=== PATIENT | female | born 1950 | race Two or more races ===

== ENCOUNTER → 2016-05-26 | Outpatient (CLI) | payer OTHER | LOC: FCPNEURO 23:15 | PROVIDERS: ATTEND Psychiatry & Neurology Sleep Medicine | DX: G47.33 Obstructive sleep apnea (adult) (pediatric) (principal) ==

== ENCOUNTER 2017-06-06 03:50 | Emergency (ER) | payer OTHER ==
[2017-06-06 04:25] LABS: PLATELET COUNT 235 10^3/uL (150-400)
[2017-06-06] MEDS ORDERED: NS 1,000 ML IV ONE (04:28)
[2017-06-06] MEDS ORDERED: KETOROLAC 15 MG/1 ML SDV IVP ONE (04:48)
[2017-06-06] MEDS ORDERED: ONDANSETRON 4 MG/2 ML VIAL IVP ONE (04:48)
--- NOTE | 2017-06-06 04:52 | EDPHY ---
H & P Stated Complaint: RIGHT FLANK AND SIDE PAIN X3 DAYS, WORSE, NAUSEA Time Seen by Provider: 06/06/17 03:59 HPI/ROS: HPI The patient presents with right-sided flank pain which began 3 days ago slowly though has gotten progressively worse. It is sharp in nature, worse with deep breaths and changes in position. She was not able to sleep tonight because of the pain and the pain began to radiate toward her abdomen. She describes urinary frequency and urgency for the last 3 days. She has not had a fever or vomiting. She has a remote history of ureterolithiasis. REVIEW OF SYSTEMS Constitutional: No fever, no chills. Eyes: No discharge. ENT: No sore throat. Cardiovascular: No chest pain, no palpitations. Respiratory: No cough, no shortness of breath. Gastrointestinal: No abdominal pain, no vomiting. Genitourinary: No hematuria. Musculoskeletal: No back pain. Skin: No rashes. Neurological: No headache. PMHx: Hypertension, diabetes, GERD Soc Hx: Lives at home with PHYSICAL General Appearance: Alert, no distress Eyes: Pupils equal and round no pallor or injection ENT, Mouth: Mucous membranes moist Respiratory: There are no retractions, lungs are clear to auscultation Cardiovascular: Regular rate and rhythm Gastrointestinal: Abdomen is soft with mild tenderness in the right upper and lower quadrants no masses, bowel sounds normal Back: There is right-sided flank tenderness Neurological: A&O, moves all extremities Skin: Warm and dry, no rashes Musculoskeletal: Neck is supple non tender Extremities: symmetrical, full range of motion Psychiatric: Patient is oriented X 3, there is no agitation Source: Patient Exam Limitations: No limitations - Personal History Current Tetanus/Diphtheria Vaccine: Yes Tetanus Vaccine Date: within 10 years - Medical/Surgical History Hx Asthma: No Hx Chronic Respiratory Disease: No Hx Diabetes: Yes Hx Cardiac Disease: Yes Hx Renal Disease: No Hx Cirrhosis: No Hx Alcoholism: No Hx HIV/AIDS: No Hx Splenectomy or Spleen Trauma: No Other PMH: HTN, GERD, hypothyroid, DM - Social History Smoking Status: Former smoker Constitutional: Initial Vital Signs Temperature (C) 36.9 C 06/06/17 03:52 Heart Rate 77 06/06/17 03:52 Respiratory Rate 22 H 06/06/17 03:52 Blood Pressure 163/82 H 06/06/17 03:52 O2 Sat (%) 94 06/06/17 03:52 O2 Delivery Mode Nasal Cannula O2 (L/minute) 2 Allergies/Adverse Reactions: No Known Allergies Allergy (Verified 06/06/17 03:52) Home Medications: Medication Instructions Recorded Aspirin [Aspirin 81mg (OTC)] 81 mg PO DAILY 04/10/13 Insulin Glargine [Lantus 100 42 units SC HS 04/10/13 UNITS/ML (RX)] Levothyroxine [Synthroid 50 mcg 50 mcg PO DAILY06 04/10/13 (RX)] Lisinopril [Zestril 40 mg (RX)] 40 mg PO DAILY 04/10/13 [place]-3 Fatty Acids [Fish Oil 1000 1,000 mg PO BID 04/10/13 mg (OTC)] Pantoprazole Sodium [Protonix 40mg 40 mg PO DAILY 04/10/13 (RX)] Sitagliptin Phos/Metformin HCl 1 tab PO BID 04/10/13 [Janumet 50-1,000 mg Tablet] Atorvastatin Calcium [Lipitor 40 40 mg PO DAILY 02/23/16 mg (*)] Canagliflozin [Invokana] 100 mg PO DAILY 02/23/16 Herbals/Supplements -Info Only 1 ea PO DAILY 02/23/16 Metoprolol Tartrate [Lopressor 50 50 mg PO BID 02/23/16 mg (*)] amLODIPine BESYLATE [Norvasc 5 mg 5 mg PO DAILY 02/23/16 (*)] levOFLOXACIN [Levofloxacin] 750 mg PO DAILY #7 tablet 06/06/17 Medical Decision Making - Diagnostics Imaging Results: CT abdomen pelvis without contrast demonstrates no obvious ureterolithiasis the though there is ureteral dilatation and in dilation of the renal pelvis on the right. This is discussed with Dr. Flynn of Radiology. Imaging: Discussed imaging studies w/ chemical cell changer Radiologist, I viewed and interpreted images myself Differential Diagnosis: This is a 66-year-old female with diabetes, hypertension who presents from home with 3 days of right-sided flank pain getting progressively worse and associated with nausea without vomiting. She does have irritative voiding symptoms as well. Differential diagnosis includes pyelonephritis, ureterolithiasis, diverticulitis , appendicitis. In the emergency department, patient was started on IV fluids. She was given Toradol and Zofran for her symptoms. Her symptoms improved somewhat, however she was given and dose of Dilaudid as well and this caused complete resolution. Labs were checked and revealed hyperglycemia. She did have evidence of urinary tract infection. I suspect she has pyelonephritis. CT scan did show some dilation of her ureter and renal pelvis though no obvious stone. She has just trace hematuria and I feel renal colic is unlikely. She would really like to go home. I have given her a dose of ceftriaxone and will discharge her with Levaquin. I have issued her strict return precautions. - Data Points Laboratory Results: Laboratory Results 06/06/17 04:15 06/06/17 04:15 06/06/17 06/06/17 06/06/17 04:40 04:15 04:15 WBC 8.48 10^3/uL 10^3/uL (3.80-9.50) RBC 4.87 10^6/uL 10^6/uL (4.18-5.33) Hgb 14.3 g/dL g/dL (12.6-16.3) Hct 43.1 % % (38.0-47.0) MCV 88.5 fL fL (81.5-99.8) MCH 29.4 pg pg (27.9-34.1) MCHC 33.2 g/dL g/dL (32.4-36.7) RDW 14.9 % % (11.5-15.2) Plt Count 235 10^3/uL 10^3/uL (150-400) MPV 10.9 fL fL (8.7-11.7) Neut % (Auto) 68.5 % % (39.3-74.2) Lymph % (Auto) 21.3 % % (15.0-45.0) [place] % (Auto) 6.5 % % (4.5-13.0) Eos % (Auto) 2.8 % % (0.6-7.6) Baso % (Auto) 0.4 % % (0.3-1.7) Nucleat RBC Rel Count 0.0 % % (0.0-0.2) Absolute Neuts (auto) 5.81 10^3/uL 10^3/uL (1.70-6.50) Absolute Lymphs (auto) 1.81 10^3/uL 10^3/uL (1.00-3.00) Absolute Monos (auto) 0.55 10^3/uL 10^3/uL (0.30-0.80) Absolute Eos (auto) 0.24 10^3/uL 10^3/uL (0.03-0.40) Absolute Basos (auto) 0.03 10^3/uL 10^3/uL (0.02-0.10) Absolute Nucleated RBC 0.00 10^3/uL 10^3/uL (0-0.01) Immature Gran % 0.5 % % (0.0-1.1) Immature Gran # 0.04 10^3/uL 10^3/uL (0.00-0.10) Sodium 144 mEq/L mEq/L (135-145) Potassium 4.6 mEq/L mEq/L (3.5-5.2) Chloride 103 mEq/L mEq/L (97-110) Carbon Dioxide 28 mEq/l mEq/l (22-31) Anion Gap 13 mEq/L mEq/L (8-16) BUN 15 mg/dL mg/dL (7-23) Creatinine 0.7 mg/dL mg/dL (0.6-1.0) Estimated GFR > 60 Glucose 156 mg/dL H mg/dL (70-100) Calcium 9.0 mg/dL mg/dL (8.5-10.4) Total Bilirubin 0.4 mg/dL mg/dL (0.1-1.4) Conjugated Bilirubin 0.3 mg/dL mg/dL (0.0-0.5) Unconjugated Bilirubin 0.1 mg/dL mg/dL (0.0-1.1) AST 24 IU/L IU/L (14-46) ALT 36 IU/L IU/L (9-52) Alkaline Phosphatase 96 IU/L IU/L (38-126) Total Protein 6.7 g/dL g/dL (6.3-8.2) Albumin 3.9 g/dL g/dL (3.5-5.0) Lipase 142 IU/L IU/L (23-300) Urine Color YELLOW Urine Appearance HAZY Urine pH 6.0 (5.0-7.5) Ur Specific Diamond 1.012 (1.002-1.030) Urine Protein 1+ H (NEGATIVE) Urine Ketones NEGATIVE (NEGATIVE) Urine Blood 1+ H (NEGATIVE) Urine Nitrate POSITIVE H (NEGATIVE) Urine Bilirubin NEGATIVE (NEGATIVE) Urine Urobilinogen NEGATIVE EU EU (0.2-1.0) Ur Leukocyte Esterase 2+ H (NEGATIVE) Urine RBC 1-3 /hpf /hpf (0-3) Urine WBC 50-182 /hpf H /hpf (0-3) Ur Epithelial Cells TRACE /lpf /lpf (NONE-1+) Urine Bacteria 4+ /hpf H /hpf (NONE SEEN) Urine Glucose 3+ H (NEGATIVE) Medications Given: Discontinued Medications Hydromorphone HCl (Dilaudid) 0.5 mg IVP EDNOW ONE Stop: 06/06/17 05:44 Last Admin: 06/06/17 05:51 Dose: 0.5 mg Sodium Chloride (Ns) 1,000 mls @ 0 mls/hr IV ONCE ONE PRN Reason: Wide Open Stop: 06/06/17 04:29 Last Admin: 06/06/17 04:30 Dose: 1,000 mls Ceftriaxone Sodium/Dextrose (Rocephin 1 Gm (Premix)) 50 mls @ 100 mls/hr IV EDNOW ONE PRN Reason: Protocol Stop: 06/06/17 05:56 Last Admin: 06/06/17 05:39 Dose: 50 mls Ketorolac Tromethamine (Toradol) 15 mg IVP EDNOW ONE Stop: 06/06/17 04:49 Last Admin: 06/06/17 05:18 Dose: 15 mg Ondansetron HCl (Zofran) 4 mg IVP EDNOW ONE Stop: 06/06/17 04:49 Last Admin: 06/06/17 05:18 Dose: 4 mg Departure - Departure Disposition: Home, Routine, Self-Care Clinical Impression: Acute pyelonephritis Condition: Good Instructions: Hydrocodone/Acetaminophen (By mouth), Ondansetron (By mouth), Urinary Tract Infection in Women (ED), Kidney Infection (ED) Additional Instructions: Please make sure to drink plenty of fluids. If you are not better in the next 1 day you should return to the emergency department. Referrals: Bridgette Douglas MD [Primary Care Provider] - As per Instructions Prescriptions: levOFLOXACIN [Levofloxacin] 750 mg PO DAILY #7 tablet
[2017-06-06] MEDS ORDERED: HYDROmorphONE/DILAUDID 2 MG/ML INJ IVP ONE (05:43)
[2017-06-06 06:04] VITALS: BP 160/73; PULSE 66; RESP 16; TEMP 98.6
[2017-06-06] MEDS ORDERED: ONDANSETRON 4MG PREPACK#2 BTL TAKEHOME ONE (06:23)
[2017-06-06] MEDS ORDERED: HYDROCOD/APAP 5/325 PREPACK#6 BTL TAKEHOME ONE (06:23)
[2017-06-06 06:59] VITALS: O2SAT 96
== END 2017-06-06 06:58 | disposition home or self-care (01) ==
DX: N10 Acute pyelonephritis (principal); B96.89 Other specified bacterial agents as the cause of diseases classified elsewhere; I10 Essential (primary) hypertension; E11.9 Type 2 diabetes mellitus without complications; Z79.4 Long term (current) use of insulin; Z79.82 Long term (current) use of aspirin; Z87.891 Personal history of nicotine dependence
CPT/HCPCS: 74176; 96365; 96375; 99285; J0696; J1170; J1885; J2405

== ENCOUNTER 2018-02-18 07:06 | Emergency (ER) | payer OTHER ==
--- NOTE | 2018-02-18 07:15 | EDPHY ---
H & P Time Seen by Provider: 02/18/18 07:13 HPI/ROS: CHIEF COMPLAINT: Diarrhea HISTORY OF PRESENT ILLNESS: Patient is a 67-year-old female who comes to the emergency depart with her complaining of diarrhea for 3 days and now feeling dizzy and weak. She also complains of dysuria for the last day. No fever. No flank pain. No chest pain or shortness of breath. No vomiting. No blood in her stool. She did return from [facility] on Friday. She also complains of mild periumbilical pain. She has a history of hysterectomy no other abdominal surgeries. Severity: Moderate Modifying factors: Seem to be worsening with time REVIEW OF SYSTEMS: Constitutional: denies: chills, fever, recent illness, recent injury EENTM: denies: blurred vision, double vision, nose congestion Respiratory: denies: cough, shortness of breath Cardiac: denies: chest pain, irregular heart rate, lightheadedness, palpitations Gastrointestinal/Abdominal: See HPI Genitourinary: See HPI Musculoskeletal: denies: joint pain, muscle pain Skin: denies: lesions, rash, jaundice, bruising Neurological: denies: headache, numbness, paresthesia, tingling, dizziness, weakness Hematologic/Lymphatic: denies: blood clots, easy bleeding, easy bruising Immunologic/allergic: denies: HIV/AIDS, transplant 10 systems reviewed and negative except as noted EXAM: GENERAL: Well-appearing, overweight and in no acute distress. HEAD: Atraumatic, normocephalic. EYES: Pupils equal round and reactive to light, extraocular movements intact, sclera anicteric, conjunctiva are normal. ENT: TMs normal, nares patent, oropharynx clear without exudates. Moist mucous membranes. NECK: Normal range of motion, supple without lymphadenopathy or JVD. LUNGS: Breath sounds clear to auscultation bilaterally and equal. No wheezes rales or rhonchi. HEART: Regular rate and rhythm without murmurs, rubs or gallops. ABDOMEN: Soft, nontender, normoactive bowel sounds. No guarding, no rebound. No masses appreciated. BACK: No CVA tenderness, no spinal tenderness, step-offs or deformities EXTREMITIES: Normal range of motion, no pitting or edema. No clubbing or cyanosis. NEUROLOGICAL: Cranial nerves II through XII grossly intact. Normal speech, normal gait. 5/5 strength, normal movement in all extremities, normal sensation , normal reflexes PSYCH: Normal mood, normal affect. SKIN: Warm, dry, normal turgor, no visible rashes or lesions. Source: Patient Exam Limitations: No limitations - Personal History Tetanus Vaccine Date: within 10 years - Medical/Surgical History Hx Asthma: No Hx Chronic Respiratory Disease: No Hx Diabetes: Yes Hx Cardiac Disease: Yes Hx Renal Disease: No Hx Cirrhosis: No Hx Alcoholism: No Hx HIV/AIDS: No Hx Splenectomy or Spleen Trauma: No Other PMH: CAD x 1 stent, HTN, GERD, hypothyroid, DM - Family History Significant Family History: No pertinent family hx - Social History Smoking Status: Former smoker Alcohol Use: Sober Drug Use: None Constitutional: Initial Vital Signs Temperature (C) 36.6 C 02/18/18 07:13 Heart Rate 84 02/18/18 07:13 Respiratory Rate 18 02/18/18 07:13 Blood Pressure 165/79 H 02/18/18 07:13 O2 Sat (%) 94 02/18/18 07:13 O2 Delivery Mode Room Air Allergies/Adverse Reactions: No Known Allergies Allergy (Verified 06/06/17 03:52) Home Medications: Medication Instructions Recorded Aspirin [Aspirin 81mg (OTC)] 81 mg PO DAILY 04/10/13 Insulin Glargine [Lantus 100 42 units SC HS 04/10/13 UNITS/ML (RX)] Levothyroxine [Synthroid 50 mcg 50 mcg PO DAILY06 04/10/13 (RX)] Lisinopril [Zestril 40 mg (RX)] 40 mg PO DAILY 04/10/13 [place]-3 Fatty Acids [Fish Oil 1000 1,000 mg PO BID 04/10/13 mg (OTC)] Pantoprazole Sodium [Protonix 40mg 40 mg PO DAILY 04/10/13 (RX)] Sitagliptin Phos/Metformin HCl 1 tab PO BID 04/10/13 [Janumet 50-1,000 mg Tablet] Atorvastatin Calcium [Lipitor 40 40 mg PO DAILY 02/23/16 mg (*)] Canagliflozin [Invokana] 100 mg PO DAILY 02/23/16 Herbals/Supplements -Info Only 1 ea PO DAILY 02/23/16 Metoprolol Tartrate [Lopressor 50 50 mg PO BID 02/23/16 mg (*)] amLODIPine BESYLATE [Norvasc 5 mg 5 mg PO DAILY 02/23/16 (*)] levOFLOXACIN [Levofloxacin] 750 mg PO DAILY #7 tablet 06/06/17 Ciprofloxacin [Cipro] 500 mg PO BID #6 tab 02/18/18 Medical Decision Making ED Course/Re-evaluation: Patient's abdominal exam is benign. She is complaining of dysuria. Will check urinalysis and began hydrating her. The patient's urinalysis is positive. Ciprofloxacin is not the ideal choice for urinary tract infections here and [place] however the patient is also complaining of diarrhea from recent travel to [place]. This could potentially cover both. I will start her on ciprofloxacin here. Her abdominal exam remains benign. We had a discussion about quinolones and I told them that this is a an antibiotic that could potentially have some serious complications. We agreed that in this situation this is the right medication and one that I would give my family member but they do need to be aware these complications. We discussed increased risk of tendon rupture as well as peripheral neuropathy. I advised the patient to limit high impact activities. I told them to return for evaluation if they develop tendon or joint pain. This conversation represented shared medical decision making. We did consider alternatives. 8:40 a.m. the patient continues to do well. Her lab work is reassuring. Her abdominal exam is benign. She and her are very eager to go home because he has to go to work. Differential Diagnosis: Partial list of the Differential diagnosis considered include but were not limited to; urinary tract infection, infectious diarrhea, traveler's diarrhea and although unlikely based on the history and physical exam, I also considered diverticulitis, appendicitis, biliary disease, ischemia, volvulus, pyelonephritis. I discussed these differential diagnoses and the plan with the patient as well as the usual and expected course. The patient understands that the diagnosis is provisional and that in medicine we are not always correct and that further workup is often warranted. Usual and customary warnings were given. All of the patient's questions were answered. The patient was instructed to return to the emergency department should the symptoms at all worsen or return, otherwise to followup with the physician as we discussed. - Data Points Laboratory Results: Laboratory Results 02/18/18 07:30 02/18/18 07:30 Medications Given: Discontinued Medications Ciprofloxacin (Cipro) 500 mg PO EDNOW ONE PRN Reason: Protocol Stop: 02/18/18 07:58 Last Admin: 02/18/18 08:04 Dose: 500 mg Sodium Chloride (Ns) 1,000 mls @ 0 mls/hr IV EDNOW ONE; Wide Open PRN Reason: Protocol Stop: 02/18/18 07:22 Last Admin: 02/18/18 07:44 Dose: 1,000 mls Ceftriaxone Sodium/Dextrose (Rocephin 1 Gm (Premix)) 50 mls @ 100 mls/hr IV EDNOW ONE PRN Reason: Protocol Stop: 02/18/18 08:16 Last Admin: 02/18/18 08:06 Dose: Not Given Departure - Departure Disposition: Home, Routine, Self-Care Clinical Impression: Travelers' diarrhea Urinary tract infection Qualifiers: Urinary tract infection type: acute cystitis Hematuria presence: without hematuria Qualified Code(s): N30.00 - Acute cystitis without hematuria Condition: Fair Instructions: Traveler's Diarrhea (ED), Urinary Tract Infection in Women (ED) Referrals: Bridgette Douglas MD [Primary Care Provider] - As per Instructions Prescriptions: Ciprofloxacin [Cipro] 500 mg PO BID #6 tab
[2018-02-18] MEDS ORDERED: NS 1,000 ML IV ONE (07:21)
[2018-02-18 07:39] LABS: PLATELET COUNT 232 10^3/uL (150-400)
[2018-02-18] MEDS ORDERED: CIPROFLOXACIN 500 MG TAB PO ONE (07:57)
[2018-02-18 08:40] VITALS: BP 155/77
== END 2018-02-18 08:54 | disposition home or self-care (01) ==
DX: R19.7 Diarrhea, unspecified (principal); N30.00 Acute cystitis without hematuria; I10 Essential (primary) hypertension; E11.9 Type 2 diabetes mellitus without complications; Z79.4 Long term (current) use of insulin; Z90.710 Acquired absence of both cervix and uterus
CPT/HCPCS: J0696

== ENCOUNTER → 2018-04-22 | Outpatient (CLI) | payer OTHER ==
[~2018-04-22] MED LIST: IOHEXOL 350mgI/ML (OMNIPAQUE) 150 ML BTL IV ONE
== END ==
LOC: FIMAGING 07:55
PROVIDERS: ATTEND Internal Medicine Cardiovascular Disease
DX: I77.4 Celiac artery compression syndrome (principal)
CPT/HCPCS: 74174; Q9967; 82565-PO